=== PATIENT | male | born 1965 | race Caucasian/White ===

== ENCOUNTER → 2023-11-14 | Outpatient (CLI) | payer OTHER ==
[~2023-11-14] MED LIST: ISOVUE-370 76% 100ML VIAL As Ordered ONE
== END ==
LOC: M RAD 17:01
PROVIDERS: ATTEND Family Medicine
DX: R59.0 Localized enlarged lymph nodes (principal)
CPT/HCPCS: 70491; Q9967

== ENCOUNTER → 2023-11-29 | Outpatient (CLI) | payer OTHER ==
[~2023-11-29] MED LIST changes: +CIDA500T2 PO; -ISOVUE-370 76% 100ML VIAL As Ordered ONE; +LISI10TA22 PO; +ROSU5TAB5 PO
== END ==
LOC: M EKG 15:41
PROVIDERS: ATTEND Anesthesiology
DX: I10 Essential (primary) hypertension (principal)

== ENCOUNTER → 2023-12-03 | Outpatient (CLI) | payer OTHER | LOC: M PLARAD 11:50 | PROVIDERS: ATTEND Family Medicine | DX: C77.0 Secondary and unspecified malignant neoplasm of lymph nodes of head, face and neck (principal) ==

== ENCOUNTER 2023-12-10 13:03 | Day surgery (SDC) | payer OTHER ==
[~2023-12-10] VITALS: Ht 170.2 cm; Wt 85.7 kg
[2023-12-10] MEDS ORDERED: LR 1,000 ML IV SCH ×2 (13:25→17:40)
[2023-12-10] MEDS ORDERED: SUCCINYLCHOLINE 100MG/5ML SYRINGE As Ordered ONE (14:18)
[2023-12-10] MEDS ORDERED: LIDOCAINE 2% 100MG/5ML SDV (FOR ANES.) As Ordered ONE (14:18)
[2023-12-10] MEDS ORDERED: propofoL 200 MG/20 ML VIAL As Ordered ONE (14:18)
[2023-12-10] MEDS ORDERED: ONDANSETRON 4MG 2ML VIAL As Ordered ONE (14:18)
[2023-12-10] MEDS ORDERED: fentaNYL 100 MCG/2 ML INJECTION As Ordered ONE (14:19)
[2023-12-10] MEDS ORDERED: MIDAZOLAM INJ 2MG/2ML VIAL As Ordered ONE (14:19)
[2023-12-10] MEDS ORDERED: OXYMETAZOLINE 0.05% NASAL SPRAY (AFRIN) As Ordered ONE (15:15)
[2023-12-10] MEDS ORDERED: fentaNYL 100 MCG/2 ML INJECTION IV PRN (17:40)
[2023-12-10] MEDS ORDERED: oxyCODONE 5MG TAB PO PRN (17:40)
[2023-12-10] MEDS ORDERED: ONDANSETRON 4MG 2ML VIAL IV PRN (17:40)
[2023-12-10] MEDS ORDERED: HYDROMORPHONE HCL 0.5 MG/ 0.5 ML SYRINGE IV PRN (17:40)
[2023-12-10 18:05] VITALS: BP 129/83; TEMP 97.1; O2SAT 99
== END 2023-12-10 18:28 | disposition home or self-care (01) ==
LOC: M SDC 13:03
PROVIDERS: ATTEND Otolaryngology
DX: K14.8 Other diseases of tongue (principal); I10 Essential (primary) hypertension; E78.00 Pure hypercholesterolemia, unspecified; M19.90 Unspecified osteoarthritis, unspecified site; M54.9 Dorsalgia, unspecified; Z79.899 Other long term (current) drug therapy
CPT/HCPCS: 31536; 88305; J0330; J1100; J2250; J2405; J3010

== ENCOUNTER → 2023-12-24 | Outpatient (CLI) | payer OTHER ==
[~2023-12-24] MED LIST changes: +LIDOCAINE 1% MDV 20ML VIAL As Ordered ONE
[2023-12-24 14:35] VITALS: BP 128/76; TEMP 96.6; O2SAT 99
== END ==
LOC: M IRPRO 14:21
PROVIDERS: ATTEND Otolaryngology
DX: R22.1 Localized swelling, mass and lump, neck (principal)

== ENCOUNTER → 2023-12-24 | Outpatient (CLI) | payer OTHER ==
[~2023-12-24] MED LIST changes: -LIDOCAINE 1% MDV 20ML VIAL As Ordered ONE
== END ==
LOC: M ONCR 08:34
PROVIDERS: ATTEND General Practice
DX: C01 Malignant neoplasm of base of tongue (principal); F17.220 Nicotine dependence, chewing tobacco, uncomplicated; Z77.29 Contact with and (suspected) exposure to other hazardous substances; Z79.899 Other long term (current) drug therapy
CPT/HCPCS: 31575; G0463

== ENCOUNTER → 2024-01-03 | Outpatient (CLI) | payer OTHER ==
[~2024-01-03] MED LIST changes: +LIDOCAINE 1% MDV 20ML VIAL As Ordered ONE; +ONDA8TAB8 PO
[2024-01-03 13:25] VITALS: TEMP 98
[2024-01-03 13:50] VITALS: BP 136/81; O2SAT 99
== END ==
LOC: M IRPRO 13:00
PROVIDERS: ATTEND Otolaryngology
DX: C76.0 Malignant neoplasm of head, face and neck (principal); R22.1 Localized swelling, mass and lump, neck

== ENCOUNTER → 2024-01-10 | Outpatient (CLI) | payer OTHER ==
[~2024-01-10] VITALS: Ht 170.2 cm; Wt 86.3 kg
[~2024-01-10] MED LIST changes: +LIDOCAINE W/EPINEPHRINE 1% 20ML VIAL As Ordered ONE; +MIDAZOLAM INJ 2MG/2ML VIAL As Ordered ONE; +NS 1,000 ML IV SCH; +ceFAZolin 2 GM/D5W 50 ML IV BAG As Ordered ONE; +ceFAZolin SOD 2 GM in IV 1 EA IV ONE; +fentaNYL 100 MCG/2 ML INJECTION As Ordered ONE
[2024-01-10 07:18] VITALS: TEMP 97.3
[2024-01-10 07:22] LABS: HEMATOCRIT 43.8 % (42.0-52.0); HEMOGLOBIN 14.7 g/dl (13.5-17.5); MEAN CORPUSCULAR HEMOGLOBIN 29.9 pg (27.0-33.0); MEAN CORPUSCULAR HGB CONC 33.6 g/dl (32.0-36.5); PLATELET COUNT, AUTOMATED 219 10^3/uL (150-450); RED BLOOD COUNT 4.92 10^6/uL (4.30-6.10); WHITE BLOOD COUNT 6.4 10^3/uL (4.0-10.0)
[2024-01-10 07:48] LABS: INR 0.95; PROTHROMBIN TIME 12.4 SECONDS (12.5-14.5)
[2024-01-10 09:30] VITALS: BP 132/84; O2SAT 100
== END ==
LOC: M IRPRO 06:55
PROVIDERS: ATTEND Internal Medicine Hematology & Oncology
DX: C02.9 Malignant neoplasm of tongue, unspecified (principal)
CPT/HCPCS: 36561; 85027; 85610; 99152; 99153; J0690; J2250; J3010

== ENCOUNTER → 2024-01-24 | Outpatient (RCR) | payer OTHER ==
[~2024-01-24] MED LIST changes: +ACET325C5 PO; -LIDOCAINE 1% MDV 20ML VIAL As Ordered ONE; -LIDOCAINE W/EPINEPHRINE 1% 20ML VIAL As Ordered ONE; +MAGICMW SSP; -MIDAZOLAM INJ 2MG/2ML VIAL As Ordered ONE; -NS 1,000 ML IV SCH; -ceFAZolin 2 GM/D5W 50 ML IV BAG As Ordered ONE; -ceFAZolin SOD 2 GM in IV 1 EA IV ONE; -fentaNYL 100 MCG/2 ML INJECTION As Ordered ONE
== END ==
LOC: M ONCR 01-02 13:48
PROVIDERS: ATTEND General Practice
DX: Z51.0 Encounter for antineoplastic radiation therapy (principal); C01 Malignant neoplasm of base of tongue

== ENCOUNTER 2024-02-22 15:08 | Outpatient (RCR) | payer OTHER ==
[~2024-02-22 15:08] MED LIST changes: +LIDVISCBTL PO; +OLAN1TAB16 PO; +OXYC-517 PO
[2024-02-25] MEDS ORDERED: OXYC-517 PO (15:49)
[2024-02-27] MEDS ORDERED: ONDA8TAB8 PO (15:13)
[2024-02-27] MEDS ORDERED: ZYPR5TAB2 PO (15:14)
== END 2024-02-24 ==
LOC: M ONCR 15:08
PROVIDERS: ATTEND General Practice
DX: Z51.0 Encounter for antineoplastic radiation therapy (principal); C01 Malignant neoplasm of base of tongue

== ENCOUNTER 2024-03-06 15:04 | Outpatient (RCR) | payer OTHER ==
[~2024-03-06 15:04] MED LIST changes: +ROSU5TAB40 PO; -ROSU5TAB5 PO; +ZYPR5TAB2 PO
== END 2024-03-25 ==
LOC: M ONCR 15:04
PROVIDERS: ATTEND General Practice
DX: Z51.0 Encounter for antineoplastic radiation therapy (principal); C01 Malignant neoplasm of base of tongue

== ENCOUNTER → 2024-03-20 | Outpatient (CLI) | payer OTHER ==
[~2024-03-20] MED LIST changes: -ROSU5TAB40 PO; +ROSU5TAB5 PO
== END ==
LOC: M ONCR 14:47
PROVIDERS: ATTEND General Practice
DX: Z01.89 Encounter for other specified special examinations (principal); L81.9 Disorder of pigmentation, unspecified

== ENCOUNTER → 2024-04-17 | Outpatient (CLI) | payer OTHER ==
[~2024-04-17] MED LIST changes: +ISOVUE-370 76% 100ML VIAL As Ordered ONE; +ROSU5TAB40 PO; -ROSU5TAB5 PO
== END ==
LOC: M RAD 08:50
PROVIDERS: ATTEND Internal Medicine Hematology & Oncology
DX: C01 Malignant neoplasm of base of tongue (principal)
CPT/HCPCS: 70491; Q9967

== ENCOUNTER → 2024-05-26 | Outpatient (CLI) | payer OTHER ==
[~2024-05-26] MED LIST changes: -ISOVUE-370 76% 100ML VIAL As Ordered ONE; +ONDA-284 PO; -ONDA8TAB8 PO
== END ==
LOC: M PLARAD 07:30
PROVIDERS: ATTEND Family Medicine
DX: C02.9 Malignant neoplasm of tongue, unspecified (principal); Z92.21 Personal history of antineoplastic chemotherapy; Z92.3 Personal history of irradiation
CPT/HCPCS: 78815; A9552

== ENCOUNTER → 2024-06-03 | Outpatient (CLI) | payer OTHER | LOC: M ONCR 15:02 | PROVIDERS: ATTEND General Practice | DX: C01 Malignant neoplasm of base of tongue (principal); C77.0 Secondary and unspecified malignant neoplasm of lymph nodes of head, face and neck; Z77.128 Contact with and (suspected) exposure to other hazards in the physical environment; Z79.899 Other long term (current) drug therapy; Z87.891 Personal history of nicotine dependence; Z92.21 Personal history of antineoplastic chemotherapy; Z92.3 Personal history of irradiation; Z95.828 Presence of other vascular implants and grafts ==

== ENCOUNTER → 2024-06-18 | Outpatient (CLI) | payer OTHER ==
[2024-06-18 16:13] LABS: HEMATOCRIT 37.7 % (42.0-52.0); HEMOGLOBIN 12.8 g/dl (13.5-17.5); MEAN CORPUSCULAR HEMOGLOBIN 31.5 pg (27.0-33.0); MEAN CORPUSCULAR VOLUME 92.9 fl (80.0-96.0); PLATELET COUNT, AUTOMATED 128 10^3/uL (150-450); RED BLOOD COUNT 4.06 10^6/uL (4.30-6.10)
[2024-06-18 16:28] LABS: INR 1.03; PROTHROMBIN TIME 13.2 SECONDS (12.5-14.5)
== END ==
LOC: M LAB 15:45
PROVIDERS: ATTEND General Practice
DX: C01 Malignant neoplasm of base of tongue (principal)

== ENCOUNTER → 2024-06-20 | Outpatient (CLI) | payer OTHER ==
[~2024-06-20] MED LIST changes: +LIDOCAINE 1% MDV 20ML VIAL As Ordered ONE; +MIDAZOLAM INJ 2MG/2ML VIAL As Ordered ONE; +ceFAZolin 2 GM/D5W 50 ML IV BAG As Ordered ONE; +fentaNYL 100 MCG/2 ML INJECTION As Ordered ONE
[2024-06-20 10:10] VITALS: TEMP 98.5
[2024-06-20 11:25] VITALS: BP 105/71; O2SAT 99
== END ==
LOC: M IRPRO 10:03
PROVIDERS: ATTEND General Practice
DX: C02.9 Malignant neoplasm of tongue, unspecified (principal)
CPT/HCPCS: 36590; 99152; J0690; J2250; J3010

== ENCOUNTER → 2024-08-27 | Outpatient (CLI) | payer OTHER ==
[~2024-08-27] MED LIST changes: +ISOVUE-370 76% 100ML VIAL As Ordered ONE; -LIDOCAINE 1% MDV 20ML VIAL As Ordered ONE; -MIDAZOLAM INJ 2MG/2ML VIAL As Ordered ONE; -ceFAZolin 2 GM/D5W 50 ML IV BAG As Ordered ONE; -fentaNYL 100 MCG/2 ML INJECTION As Ordered ONE
== END ==
LOC: M RAD 13:07
PROVIDERS: ATTEND Internal Medicine Hematology & Oncology
DX: C01 Malignant neoplasm of base of tongue (principal)
CPT/HCPCS: 70491; Q9967

== ENCOUNTER → 2024-09-03 | Outpatient (CLI) | payer OTHER ==
[~2024-09-03] MED LIST changes: -ISOVUE-370 76% 100ML VIAL As Ordered ONE
== END ==
LOC: M ONCR 13:54
PROVIDERS: ATTEND General Practice
DX: C01 Malignant neoplasm of base of tongue (principal); R68.2 Dry mouth, unspecified; R43.9 Unspecified disturbances of smell and taste; Z77.118 Contact with and (suspected) exposure to other environmental pollution; Z79.899 Other long term (current) drug therapy; Z87.891 Personal history of nicotine dependence; Z92.21 Personal history of antineoplastic chemotherapy; Z92.3 Personal history of irradiation

== ENCOUNTER → 2024-12-04 | Outpatient (CLI) | payer OTHER ==
[~2024-12-04] MED LIST changes: +LEVO25CA PO; -ROSU5TAB40 PO; +ROSU5TAB49 PO
== END ==
LOC: M ONCR 13:47
PROVIDERS: ATTEND General Practice
DX: C01 Malignant neoplasm of base of tongue (principal); R19.02 Left upper quadrant abdominal swelling, mass and lump; Z87.891 Personal history of nicotine dependence; Z92.21 Personal history of antineoplastic chemotherapy; Z92.3 Personal history of irradiation; Z77.29 Contact with and (suspected) exposure to other hazardous substances; Z79.890 Hormone replacement therapy; Z79.899 Other long term (current) drug therapy
CPT/HCPCS: 31575; G0463

== ENCOUNTER → 2025-02-25 | Outpatient (CLI) | payer OTHER ==
[~2025-02-25] MED LIST changes: +ERGO500029; +ISOVUE-370 76% 100ML VIAL As Ordered ONE
== END ==
LOC: M RAD 08:49
PROVIDERS: ATTEND General Practice
DX: C01 Malignant neoplasm of base of tongue (principal)

== ENCOUNTER → 2025-03-04 | Outpatient (CLI) | payer OTHER ==
[~2025-03-04] MED LIST changes: -ISOVUE-370 76% 100ML VIAL As Ordered ONE
== END ==
LOC: M ONCR 11:50
PROVIDERS: ATTEND General Practice
DX: Z08 Encounter for follow-up examination after completed treatment for malignant neoplasm (principal); Z85.810 Personal history of malignant neoplasm of tongue; Z87.891 Personal history of nicotine dependence; Z92.21 Personal history of antineoplastic chemotherapy; Z92.3 Personal history of irradiation; Z77.29 Contact with and (suspected) exposure to other hazardous substances; Z79.890 Hormone replacement therapy; Z79.899 Other long term (current) drug therapy
CPT/HCPCS: 31575; G0463

== ENCOUNTER → 2025-06-04 | Outpatient (CLI) | payer OTHER ==
[~2025-06-04] MED LIST changes: -LEVO25CA PO; +LEVO25CA2 PO
== END ==
LOC: M ONCR 07:56
PROVIDERS: ATTEND General Practice
DX: Z08 Encounter for follow-up examination after completed treatment for malignant neoplasm (principal); Z85.810 Personal history of malignant neoplasm of tongue; Z77.29 Contact with and (suspected) exposure to other hazardous substances; Z79.890 Hormone replacement therapy; Z79.899 Other long term (current) drug therapy; Z87.891 Personal history of nicotine dependence; Z92.21 Personal history of antineoplastic chemotherapy; Z92.3 Personal history of irradiation
CPT/HCPCS: 31575; G0463

== ENCOUNTER → 2025-09-04 | Outpatient (CLI) | payer OTHER | LOC: M ONCR 15:38 | PROVIDERS: ATTEND General Practice | DX: Z08 Encounter for follow-up examination after completed treatment for malignant neoplasm (principal); Z85.810 Personal history of malignant neoplasm of tongue; Z87.891 Personal history of nicotine dependence; Z92.21 Personal history of antineoplastic chemotherapy; Z92.3 Personal history of irradiation; Z77.29 Contact with and (suspected) exposure to other hazardous substances; Z79.899 Other long term (current) drug therapy ==

== ENCOUNTER → 2025-11-24 | Outpatient (CLI) | payer OTHER ==
[~2025-11-24] MED LIST changes: +ISOVUE-370 76% 100 ML VIAL As Ordered ONE
== END ==
LOC: M RAD 08:50
PROVIDERS: ATTEND General Practice
DX: C01 Malignant neoplasm of base of tongue (principal)
CPT/HCPCS: 70491; Q9967